=== PATIENT | male | born 1970 | race Caucasian/White ===

== ENCOUNTER 2018-09-13 13:32 | Emergency (ER) | payer SELFPAY ==
[2018-09-13] MEDS ORDERED: ACETAMINOPHEN 500 MG TABLET PO ONE (14:08)
[2018-09-13] MEDS ORDERED: ALBUTEROL SULFATE (0.083%) 2.5 MG/3 ML NEB INH ONE (14:09)
[2018-09-13 14:21] LABS: HEMATOCRIT 30.2 % (42.0-52.0); HEMOGLOBIN 10.5 gm/dl (14.0-18.0); MEAN CELL VOLUME 86.8 fl (81-97); MEAN CORPUSCULAR HGB CONC 34.8 g/dl (32-36); MEAN PLATELET VOLUME 9.8 fl (7.4-10.4); PLATELET COUNT 297 K/uL (130-400); RED BLOOD COUNT 3.48 M/uL (4.40-5.70); RED CELL DISTRIBUTION WIDTH 15.1 % (11.5-14.5)
[2018-09-13 14:22] LABS: MEAN CORPUSCULAR HEMOGLOBIN 30.1 pg (27-33)
[2018-09-13 14:37] LABS: BILIRUBIN,TOTAL 0.3 mg/dL (0.2-1.0); TOTAL PROTEIN 7.9 g/dL (6.6-8.7)
[2018-09-13 14:39] LABS: WHITE BLOOD COUNT W/O DIFF 20.4 K/uL (4.2-12.2)
[2018-09-13 14:42] LABS: INFLUENZA A NEGATIVE (NEGATIVE); INFLUENZA B NEGATIVE (NEGATIVE); STREP A SCREEN NEGATIVE (NEGATIVE)
[2018-09-13 14:42] LABS: ALBUMIN 4.2 g/dL (4.0-5.0)
[2018-09-13 14:54] LABS: ALB/GLOB RATIO 1.1 (1.1-1.8)
--- NOTE | 2018-09-13 15:13 | Emergency Department Record ---
History of Present Illness - General Chief complaint: Weakness Stated complaint: WEAK,SLEEPING ALOT,NOT EATING Time Seen by Provider: 09/13/18 13:57 Source: Patient Mode of Arrival: Ambulatory Limitations: No limitations - History of Present Illness Onset/Timin -: Month(s) Location: Generalized Improves with: None Worsens with: None Associated Symptoms: Fever/chills, Loss of appetite, Shortness of breath - [place] Coma Scale Eye Response: (4) Open spontaneously Motor Response: (6) Obeys commands Verbal Response: (5) Oriented [place] Total: 15 - Related Data Home Medications Medication Instructions Recorded Confirmed Last Taken No Home Med [NO HOME MEDS] 09/13/18 09/13/18 Unknown Allergies Allergy/AdvReac Type Severity Reaction Status Date / Time phenobarbital Allergy PT UNSURE Verified 09/13/18 13:51 OF REACTION Travel Screening - Travel/Exposure Within Last 30 Days Have you traveled within the last 30 days?: No Past Medical History - SOCIAL HISTORY Smoking Status: Current every day smoker Alcohol Use: None Drug Use: None - RESPIRATORY Hx Respiratory Disorders: No - CARDIOVASCULAR Hx Cardio Disorders: No - NEURO Hx Neuro Disorders: No - GI Hx GI Disorders: No - Hx Genitourinary Disorders: Yes Comment:: straight caths self - ENDOCRINE Hx Endocrine Disorders: No - MUSCULOSKELETAL Hx Musculoskeletal Disorders: No - PSYCH Hx Psych Problems: No - HEMATOLOGY/ONCOLOGY Hx Hematology/Oncology Disorders: No Family Medical History Any Significant Family History?: No Course Vital Signs 09/13/18 09/13/18 13:52 14:20 Temperature 97.6 F Pulse Rate 90 90 Respiratory 22 22 Rate Blood Pressure 166/114 Pulse Ox 100 100 - Reevaluation(s) Reevaluation #1: 09/13/18 15:53 case d/w non destructive evaluation technician, hospitalist, and roustabout supervisor Reevaluation #2: 09/13/18 15:[address] cancelled till he gets to [facility] Medical Decision Making - Lab Data Result diagrams: 09/13/18 14:15 09/13/18 14:15 Lab Results 09/13/18 09/13/18 09/13/18 Range/Units 14:15 14:15 14:25 WBC 20.4 H* (4.2-12.2) K/uL RBC 3.48 L (4.40-5.70) M/uL Hgb 10.5 L (14.0-18.0) gm/dl Hct 30.2 L (42.0-52.0) % MCV 86.8 (81-97) fl MCH 30.1 (27-33) pg MCHC 34.8 (32-36) g/dl RDW 15.1 H (11.5-14.5) % Plt Count 297 (130-400) K/uL MPV 9.8 (7.4-10.4) fl Neutrophils % 80.0 (47-80) % Band Neutrophils % 1.0 (0-5) % Eosinophils % Not Reportable Basophils % Not Reportable Lymphocytes 8.0 L (16-45) % Monocytes 7.0 (0-9) % Basophils 1.0 (0-6) % Metamyelocytes 1.0 % Eosinophil Count 2.0 (0-6) % Sodium 130 L (136-145) mmol/L Potassium 4.2 (3.4-4.5) mmol/L Chloride 103 (98-107) mmol/L Carbon Dioxide 4.0 L (22-29) mmol/L Anion Gap 23.0 H (7-16) BUN 156 H (6-20) mg/dL Creatinine 16.0 H (0.7-1.2) mg/dL Estimated GFR 3 mL/min Random Glucose 109 (74-109) mg/dL Calcium 6.5 L (8.6-10.0) mg/dL Total Bilirubin 0.30 (0.2-1.0) mg/dL AST 22 (10.0-50.0) U/L ALT 21 (<41) U/L Alkaline Phosphatase 125 (40-129) U/L Total Protein 7.9 (6.6-8.7) g/dL Albumin 4.2 (4.0-5.0) g/dL Globulin 3.7 (1.4-4.8) gm/dL Albumin/Globulin Ratio 1.1 (1.1-1.8) Influenza Type A Ag Negative (NEGATIVE) Influenza Type B Ag Negative (NEGATIVE) Group A Strep Screen Negative (NEGATIVE) Disposition Disposition: Transfer Clinical Impression: Acute kidney failure Qualifiers: Acute renal failure type: unspecified Qualified Code(s): N17.9 - Acute kidney failure, unspecified Disposition: [facility] Transfer Transfer To: [facility] Reason For Transfer: acute renal failure Accepting Physician: tianna arango and justine Time Discussed w/Accepting Physician: 15:52 Quality - Quality Measures Quality Measures: N/A - Blood Pressure Screening Does Patient Have Any of the Following: No Blood Pressure Classification: Hypertensive Reading Systolic Measurement: 166 Diastolic Measurement: 114 Screening for High Blood Pressure: < First Hypertensive BP, F/U Documented > [ G8950] First Hypertensive Follow-up Interventions: Follow-up with rescreen GT 1 day and LT 4 weeks.
[2018-09-13 15:34] LABS: ARTERIAL BLD GAS O2 SATURATION 96.8 % (95-98); ARTERIAL BLOOD GAS BASE EXCESS -28.1 mmol/L (-2 - 3); ARTERIAL BLOOD GAS HCO3 2.6 mmol/L (18-23); METHEMOGLOBIN 0.5 % (0.0-1.5); O2 HEMOGLOBIN 95.3 % vol (94-99); TOTAL HEMOGLOBIN 9.9 g/dl (14-18)
[2018-09-13] MEDS ORDERED: RINGERS SOLUTION,LACTATED 1,000 ML IV ONE (15:35)
[2018-09-13] MEDS ORDERED: CEFEPIME HCL IVPB ONE (15:37)
[2018-09-13] MEDS ORDERED: SODIUM CHLORIDE 0.9% IVPB ONE (15:37)
[2018-09-13 15:40] LABS: ARTERIAL BLOOD GAS PCO2 11.4 mmHg (35-48); ARTERIAL BLOOD GAS pH 6.98 (7.35-7.45)
[2018-09-13 15:41] LABS: ALLEN TEST PASS
[2018-09-13] MEDS ORDERED: SODIUM BICARBONATE 50MEQ SYRINGE IVP ONE ×2 (15:44→15:49)
--- NOTE | 2018-09-13 16:01 | Emergency Department Record ---
History of Present Illness - General Chief complaint: Weakness Stated complaint: WEAK,SLEEPING ALOT,NOT EATING Time Seen by Provider: 09/13/18 13:57 Source: Patient Mode of Arrival: Ambulatory Limitations: No limitations - History of Present Illness Onset/Timin -: Month(s) Location: Generalized Improves with: None Worsens with: None Associated Symptoms: Fever/chills, Loss of appetite, Shortness of breath - [place] Coma Scale Eye Response: (4) Open spontaneously Motor Response: (6) Obeys commands Verbal Response: (5) Oriented Jeanne Total: 15 - Related Data Home Medications Medication Instructions Recorded Confirmed Last Taken No Home Med [NO HOME MEDS] 09/13/18 09/13/18 Unknown Allergies Allergy/AdvReac Type Severity Reaction Status Date / Time phenobarbital Allergy PT UNSURE Verified 09/13/18 13:51 OF REACTION Travel Screening - Travel/Exposure Within Last 30 Days Have you traveled within the last 30 days?: No Past Medical History - SOCIAL HISTORY Smoking Status: Current every day smoker Alcohol Use: None Drug Use: None - RESPIRATORY Hx Respiratory Disorders: No - CARDIOVASCULAR Hx Cardio Disorders: No - NEURO Hx Neuro Disorders: No - GI Hx GI Disorders: No - Hx Genitourinary Disorders: Yes Comment:: straight caths self - ENDOCRINE Hx Endocrine Disorders: No - MUSCULOSKELETAL Hx Musculoskeletal Disorders: No - PSYCH Hx Psych Problems: No - HEMATOLOGY/ONCOLOGY Hx Hematology/Oncology Disorders: No Family Medical History Any Significant Family History?: No Physical Exam - General Limitations: No limitations Course Vital Signs 09/13/18 09/13/18 09/13/18 13:52 14:20 15:54 Temperature 97.6 F Pulse Rate 90 90 Pulse Rate [ 92 H Pulse Ox Probe] Respiratory 22 22 20 Rate Blood Pressure 166/114 Blood Pressure 185/102 [Left Arm] Pulse Ox 100 100 99 Medical Decision Making - Lab Data Result diagrams: 09/13/18 14:15 09/13/18 14:15 Lab Results 09/13/18 09/13/18 09/13/18 Range/Units 14:15 14:15 14:25 WBC 20.4 H* (4.2-12.2) K/uL RBC 3.48 L (4.40-5.70) M/uL Hgb 10.5 L (14.0-18.0) gm/dl Hct 30.2 L (42.0-52.0) % MCV 86.8 (81-97) fl MCH 30.1 (27-33) pg MCHC 34.8 (32-36) g/dl RDW 15.1 H (11.5-14.5) % Plt Count 297 (130-400) K/uL MPV 9.8 (7.4-10.4) fl Neutrophils % 80.0 (47-80) % Band Neutrophils % 1.0 (0-5) % Eosinophils % Not Reportable Basophils % Not Reportable Lymphocytes 8.0 L (16-45) % Monocytes 7.0 (0-9) % Basophils 1.0 (0-6) % Metamyelocytes 1.0 % Eosinophil Count 2.0 (0-6) % Puncture Site pCO2 (35-48) mmHg pO2 (83-108) mmHg HCO3 (18-23) mmol/L Oxyhemoglobin (94-99) % vol ABG pH (7.35-7.45) ABG O2 Saturation (95-98) % ABG Base Excess (-2 - 3) mmol/L Greg Test Carboxyhemoglobin (0-1.5) % Methemoglobin (0.0-1.5) % Total Hemoglobin (14-18) g/dl Actual Respiration Rate (10-18) /MIN FiO2 % Sodium 130 L (136-145) mmol/L Potassium 4.2 (3.4-4.5) mmol/L Chloride 103 (98-107) mmol/L Carbon Dioxide 4.0 L (22-29) mmol/L Anion Gap 23.0 H (7-16) BUN 156 H (6-20) mg/dL Creatinine 16.0 H (0.7-1.2) mg/dL Estimated GFR 3 mL/min Random Glucose 109 (74-109) mg/dL Calcium 6.5 L (8.6-10.0) mg/dL Total Bilirubin 0.30 (0.2-1.0) mg/dL AST 22 (10.0-50.0) U/L ALT 21 (<41) U/L Alkaline Phosphatase 125 (40-129) U/L Total Protein 7.9 (6.6-8.7) g/dL Albumin 4.2 (4.0-5.0) g/dL Globulin 3.7 (1.4-4.8) gm/dL Albumin/Globulin Ratio 1.1 (1.1-1.8) Influenza Type A Ag Negative (NEGATIVE) Influenza Type B Ag Negative (NEGATIVE) Group A Strep Screen Negative (NEGATIVE) 09/13/18 Range/Units 15:10 WBC (4.2-12.2) K/uL RBC (4.40-5.70) M/uL Hgb (14.0-18.0) gm/dl Hct (42.0-52.0) % MCV (81-97) fl MCH (27-33) pg MCHC (32-36) g/dl RDW (11.5-14.5) % Plt Count (130-400) K/uL MPV (7.4-10.4) fl Neutrophils % (47-80) % Band Neutrophils % (0-5) % Eosinophils % Basophils % Lymphocytes (16-45) % Monocytes (0-9) % Basophils (0-6) % Metamyelocytes % Eosinophil Count (0-6) % Puncture Site Left wrist pCO2 11.4 L* (35-48) mmHg pO2 128.0 H (83-108) mmHg HCO3 2.6 L (18-23) mmol/L Oxyhemoglobin 95.3 (94-99) % vol ABG pH 6.98 L* (7.35-7.45) ABG O2 Saturation 96.8 (95-98) % ABG Base Excess -28.1 L (-2 - 3) mmol/L Greg Test Pass Carboxyhemoglobin 1.0 (0-1.5) % Methemoglobin 0.5 (0.0-1.5) % Total Hemoglobin 9.9 L (14-18) g/dl Actual Respiration Rate 24.0 H (10-18) /MIN FiO2 % Sodium (136-145) mmol/L Potassium (3.4-4.5) mmol/L Chloride (98-107) mmol/L Carbon Dioxide (22-29) mmol/L Anion Gap (7-16) BUN (6-20) mg/dL Creatinine (0.7-1.2) mg/dL Estimated GFR mL/min Random Glucose (74-109) mg/dL Calcium (8.6-10.0) mg/dL Total Bilirubin (0.2-1.0) mg/dL AST (10.0-50.0) U/L ALT (<41) U/L Alkaline Phosphatase (40-129) U/L Total Protein (6.6-8.7) g/dL Albumin (4.0-5.0) g/dL Globulin (1.4-4.8) gm/dL Albumin/Globulin Ratio (1.1-1.8) Influenza Type A Ag (NEGATIVE) Influenza Type B Ag (NEGATIVE) Group A Strep Screen (NEGATIVE) Critical Care Time Critical Care Time: Yes Total Critical Care Time: 75 Disposition Clinical Impression: Acute kidney failure Qualifiers: Acute renal failure type: unspecified Qualified Code(s): N17.9 - Acute kidney failure, unspecified Disposition: [facility] Transfer Quality - Quality Measures Quality Measures: N/A - Blood Pressure Screening Does Patient Have Any of the Following: No Blood Pressure Classification: Hypertensive Reading Systolic Measurement: 166 Diastolic Measurement: 114 Screening for High Blood Pressure: < First Hypertensive BP, F/U Documented > [ G8950] First Hypertensive Follow-up Interventions: Follow-up with rescreen GT 1 day and LT 4 weeks.
[2018-09-13 16:21] LABS: URINE APPEARANCE SL CLOUDY; URINE BILIRUBIN NEGATIVE (NEGATIVE); URINE BLOOD LARGE (NEGATIVE); URINE COLOR YELLOW; URINE GLUCOSE (UA) NEGATIVE (NEGATIVE); URINE KETONE NEGATIVE (NEGATIVE); URINE LEUKOCYTE ESTERASE LARGE (NEGATIVE); URINE NITRITE POSITIVE (NEGATIVE); URINE UROBILINOGEN 0.2 E.U./dL (0.20 - 1.00)
[2018-09-13 16:28] LABS: URINE BACTERIA 4+; URINE RBC 36 - 50 (NONE SEEN); URINE SQUAMOUS EPITHELIAL CELL 0 - 2 /hpf
--- NOTE | 2018-09-15 06:12 | RADIOLOGY REPORT ---
EXAM: CHEST, TWO VIEWS HISTORY: PATIENT HAS COUGH. TECHNIQUE: Two views of the chest are provided without comparison examinations. FINDINGS: The cardiomediastinal silhouette is within normal limits for size and contour. The oneil appear unremarkable. There is no radiographic evidence of a focal infiltrate or pleural effusion. No pneumothorax is noted. IMPRESSION: NO RADIOGRAPHIC EVIDENCE OF AN ACUTE INTRATHORACIC PROCESS. JOB NUMBER: [id number] [facility]
--- NOTE | 2018-09-15 18:27 | Emergency Department Record ---
History of Present Illness - General Chief complaint: Weakness Stated complaint: WEAK,SLEEPING ALOT,NOT EATING Time Seen by Provider: 09/13/18 13:57 Source: Patient Mode of Arrival: Ambulatory Limitations: No limitations - History of Present Illness Initial comments: pt c/o weakness, ivelisse, nausea, decreased appetite, muscle aches , sleeping a lot. pt has not been to a dr in years, pts so states he cant have motrin because someone a long time ago told him his kidneys werent working perfectly. pt has hx of alcoholism but hasnt drank in a long time. he had to have bladder reconstruction because his bladder "shrunk". he self caths. states pt has been breathing heavily for 3 days MD Complaint: Generalized weakness, Lack of energy Onset/Timin -: Month(s) Location: Generalized Severity: Moderate Consistency: Getting worse Improves with: None Worsens with: None Associated Symptoms: Fever/chills, Loss of appetite, Shortness of breath - [place] Coma Scale Eye Response: (4) Open spontaneously Motor Response: (6) Obeys commands Verbal Response: (5) Oriented [place] Total: 15 - Symptoms of Stroke Symptoms of stroke: Muscle Weakness - Related Data Home Medications Medication Instructions Recorded Confirmed Last Taken No Home Med [NO HOME MEDS] 09/13/18 09/13/18 Unknown Allergies Allergy/AdvReac Type Severity Reaction Status Date / Time phenobarbital Allergy PT UNSURE Verified 09/13/18 13:51 OF REACTION Travel Screening - Travel/Exposure Within Last 30 Days Have you traveled within the last 30 days?: No Review of Systems Reviewed: No additional complaints except as noted below Constitutional: Reports: As per HPI, Weakness. Denies: Chills, Fever, Malaise, Night sweats, Weight change Eyes: Reports: As per HPI. Denies: Eye discharge, Eye pain, Photophobia, Vision change ENT: Reports: As per HPI. Denies: Congestion, Dental pain, Ear pain, Epistaxis , Hearing loss, Throat pain Respiratory: Reports: As per HPI, Cough, Dyspnea. Denies: Hemoptysis, Stridor, Wheezes Cardiovascular: Reports: As per HPI. Denies: Arrhythmia, Chest pain, Dyspnea on exertion, Edema, Murmurs, Orthopnea, Palpitations, Paroxysmal nocturnal dyspnea, Rheumatic Fever, Syncope Endocrine: Reports: As per HPI, Fatigue. Denies: Heat or cold intolerance, Polydipsia, Polyuria Gastrointestinal: Reports: As per HPI. Denies: Abdominal pain, Constipation, Diarrhea, Hematemesis, Hematochezia, Melena, Nausea, Vomiting Genitourinary: Reports: As per HPI. Denies: Discharge, Dysuria, Frequency, Hematuria, Incontinence, Retention, Testicular pain, Testicular mass, Urgency Musculoskeletal: Reports: As per HPI. Denies: Arthralgia, Back pain, Gout, Joint swelling, Myalgia, Neck pain Skin: Reports: As per HPI. Denies: Bruising, Change in color, Change in hair/ nails, Lesions, Pruritus, Rash Neurological: Reports: As per HPI. Denies: Abnormal gait, Confusion, Headache, Numbness, Paresthesias, Seizure, Tingling, Tremors, Vertigo, Weakness Psychiatric: Reports: As per HPI. Denies: Anxiety, Auditory hallucinations, Depression, Homicidal thoughts, Suicidal thoughts, Visual hallucinations Hematological/Lymphatic: Reports: As per HPI. Denies: Anemia, Blood Clots, Easy bleeding, Easy bruising, Swollen glands Past Medical History - SOCIAL HISTORY Smoking Status: Current every day smoker Alcohol Use: None Drug Use: None - RESPIRATORY Hx Respiratory Disorders: No - CARDIOVASCULAR Hx Cardio Disorders: No - NEURO Hx Neuro Disorders: No - GI Hx GI Disorders: No - Hx Genitourinary Disorders: Yes Comment:: straight caths self - ENDOCRINE Hx Endocrine Disorders: No - MUSCULOSKELETAL Hx Musculoskeletal Disorders: No - PSYCH Hx Psych Problems: No - HEMATOLOGY/ONCOLOGY Hx Hematology/Oncology Disorders: No Family Medical History Any Significant Family History?: No Physical Exam - General General Appearance: Alert, Oriented x3, Cooperative, Moderate distress, Other ( [place] breathing) Limitations: No limitations - Head Head exam: Normal inspection - Eye Eye exam: Normal appearance, PERRL, EOMI Pupils: Normal accommodation - ENT ENT exam: Normal exam, Mucous membranes dry, Normal external ear exam, Normal orophraynx Ear exam: Normal external inspection. negative: External canal tenderness Nasal Exam: Normal inspection. negative: Discharge, Sinus tenderness Mouth exam: Normal external inspection, Tongue normal Teeth exam: Normal inspection. negative: Dental caries Throat exam: Normal inspection. negative: Tonsillar erythema, Tonsillar exudate - Neck Neck exam: Normal inspection, Full ROM. negative: Tenderness - Respiratory Respiratory exam: Respiratory distress, Other ([place] breathing) - Cardiovascular Cardiovascular Exam: Regular rate, Normal rhythm, Normal heart sounds - GI/Abdominal GI/Abdominal exam: Soft, Normal bowel sounds. negative: Tenderness - Rectal Rectal exam: Deferred - exam: Deferred - Extremities Extremities exam: Normal inspection, Full ROM, Normal capillary refill. negative: Tenderness - Back Back exam: Reports: Normal inspection, Full ROM. Denies: Muscle spasm, Rash noted, Tenderness - Neurological Neurological exam: Alert, CN II-XII intact, Normal gait, Oriented X3 - Psychiatric Psychiatric exam: Normal affect, Normal mood - Skin Skin exam: Dry, Intact, Pallor, Warm Course Vital Signs 09/13/18 09/13/18 09/13/18 13:52 14:20 15:54 Temperature 97.6 F Pulse Rate 90 90 Pulse Rate [ 92 H Pulse Ox Probe] Respiratory 22 22 20 Rate Blood Pressure 166/114 Blood Pressure 185/102 [Left Arm] Pulse Ox 100 100 99 Medical Decision Making - Lab Data Result diagrams: 09/13/18 14:15 09/13/18 14:15 Lab Results 09/13/18 09/13/18 09/13/18 Range/Units 14:15 14:15 14:25 WBC 20.4 H* (4.2-12.2) K/uL RBC 3.48 L (4.40-5.70) M/uL Hgb 10.5 L (14.0-18.0) gm/dl Hct 30.2 L (42.0-52.0) % MCV 86.8 (81-97) fl MCH 30.1 (27-33) pg MCHC 34.8 (32-36) g/dl RDW 15.1 H (11.5-14.5) % Plt Count 297 (130-400) K/uL MPV 9.8 (7.4-10.4) fl Neutrophils % 80.0 (47-80) % Band Neutrophils % 1.0 (0-5) % Eosinophils % Not Reportable Basophils % Not Reportable Lymphocytes 8.0 L (16-45) % Monocytes 7.0 (0-9) % Basophils 1.0 (0-6) % Metamyelocytes 1.0 % Eosinophil Count 2.0 (0-6) % Puncture Site pCO2 (35-48) mmHg pO2 (83-108) mmHg HCO3 (18-23) mmol/L Oxyhemoglobin (94-99) % vol ABG pH (7.35-7.45) ABG O2 Saturation (95-98) % ABG Base Excess (-2 - 3) mmol/L Greg Test Carboxyhemoglobin (0-1.5) % Methemoglobin (0.0-1.5) % Total Hemoglobin (14-18) g/dl Actual Respiration Rate (10-18) /MIN FiO2 % Sodium 130 L (136-145) mmol/L Potassium 4.2 (3.4-4.5) mmol/L Chloride 103 (98-107) mmol/L Carbon Dioxide 4.0 L (22-29) mmol/L Anion Gap 23.0 H (7-16) BUN 156 H (6-20) mg/dL Creatinine 16.0 H (0.7-1.2) mg/dL Estimated GFR 3 mL/min Random Glucose 109 (74-109) mg/dL Lactic Acid (0.5-2.2) mmol/L Calcium 6.5 L (8.6-10.0) mg/dL Total Bilirubin 0.30 (0.2-1.0) mg/dL AST 22 (10.0-50.0) U/L ALT 21 (<41) U/L Alkaline Phosphatase 125 (40-129) U/L Total Protein 7.9 (6.6-8.7) g/dL Albumin 4.2 (4.0-5.0) g/dL Globulin 3.7 (1.4-4.8) gm/dL Albumin/Globulin Ratio 1.1 (1.1-1.8) Urine Color Urine Appearance Urine pH (5.0-8.0) Ur Specific [place] (1.002-1.030) Urine Protein (NEGATIVE) Urine Glucose (UA) (NEGATIVE) Urine Ketones (NEGATIVE) Urine Blood (NEGATIVE) Urine Nitrite (NEGATIVE) Urine Bilirubin (NEGATIVE) Urine Urobilinogen (0.20 - 1.00) E.U./dL Ur Leukocyte Esterase (NEGATIVE) Urine RBC (NONE SEEN) Urine WBC (0-2/hpf) U Non-Squamous Epi Cells /hpf Urine Bacteria Influenza Type A Ag Negative (NEGATIVE) Influenza Type B Ag Negative (NEGATIVE) Group A Strep Screen Negative (NEGATIVE) 09/13/18 09/13/18 09/13/18 Range/Units 15:10 15:45 16:15 WBC (4.2-12.2) K/uL RBC (4.40-5.70) M/uL Hgb (14.0-18.0) gm/dl Hct (42.0-52.0) % MCV (81-97) fl MCH (27-33) pg MCHC (32-36) g/dl RDW (11.5-14.5) % Plt Count (130-400) K/uL MPV (7.4-10.4) fl Neutrophils % (47-80) % Band Neutrophils % (0-5) % Eosinophils % Basophils % Lymphocytes (16-45) % Monocytes (0-9) % Basophils (0-6) % Metamyelocytes % Eosinophil Count (0-6) % Puncture Site Left wrist pCO2 11.4 L* (35-48) mmHg pO2 128.0 H (83-108) mmHg HCO3 2.6 L (18-23) mmol/L Oxyhemoglobin 95.3 (94-99) % vol ABG pH 6.98 L* (7.35-7.45) ABG O2 Saturation 96.8 (95-98) % ABG Base Excess -28.1 L (-2 - 3) mmol/L Greg Test Pass Carboxyhemoglobin 1.0 (0-1.5) % Methemoglobin 0.5 (0.0-1.5) % Total Hemoglobin 9.9 L (14-18) g/dl Actual Respiration Rate 24.0 H (10-18) /MIN FiO2 % Sodium (136-145) mmol/L Potassium (3.4-4.5) mmol/L Chloride (98-107) mmol/L Carbon Dioxide (22-29) mmol/L Anion Gap (7-16) BUN (6-20) mg/dL Creatinine (0.7-1.2) mg/dL Estimated GFR mL/min Random Glucose (74-109) mg/dL Lactic Acid 0.9 (0.5-2.2) mmol/L Calcium (8.6-10.0) mg/dL Total Bilirubin (0.2-1.0) mg/dL AST (10.0-50.0) U/L ALT (<41) U/L Alkaline Phosphatase (40-129) U/L Total Protein (6.6-8.7) g/dL Albumin (4.0-5.0) g/dL Globulin (1.4-4.8) gm/dL Albumin/Globulin Ratio (1.1-1.8) Urine Color Yellow Urine Appearance Sl cloudy Urine pH 7.0 (5.0-8.0) Ur Specific [place] 1.015 (1.002-1.030) Urine Protein 100 mg/dl H (NEGATIVE) Urine Glucose (UA) Negative (NEGATIVE) Urine Ketones Negative (NEGATIVE) Urine Blood Large H (NEGATIVE) Urine Nitrite Positive H (NEGATIVE) Urine Bilirubin Negative (NEGATIVE) Urine Urobilinogen 0.2 (0.20 - 1.00) E.U./dL Ur Leukocyte Esterase Large H (NEGATIVE) Urine RBC 36 - 50 (NONE SEEN) Urine WBC Too numerous to cnt (0-2/hpf) U Non-Squamous Epi Cells 0 - 2 /hpf Urine Bacteria 4+ Influenza Type A Ag (NEGATIVE) Influenza Type B Ag (NEGATIVE) Group A Strep Screen (NEGATIVE) Critical Care Time Critical Care Time: Yes Total Critical Care Time: 75 Disposition Disposition: Transfer Clinical Impression: Acute kidney failure Qualifiers: Acute renal failure type: unspecified Qualified Code(s): N17.9 - Acute kidney failure, unspecified Disposition: Acute Care [facility] Reason For Transfer: renal failure, needs dialysis Accepting Physician: supplier diversity director Time Discussed w/Accepting Physician: 17:00 Condition: (5) Critical Forms: Patient Portal Access Quality - Quality Measures Quality Measures: N/A - Blood Pressure Screening Does Patient Have Any of the Following: No Blood Pressure Classification: Hypertensive Reading Systolic Measurement: 166 Diastolic Measurement: 114 Screening for High Blood Pressure: < First Hypertensive BP, F/U Documented > [ G8950] First Hypertensive Follow-up Interventions: Follow-up with rescreen GT 1 day and LT 4 weeks.
== END 2018-09-13 16:30 | disposition short-term general hospital (02) ==
LOC: ER 13:32
DX: N17.9 Acute kidney failure, unspecified (principal); R06.02 Shortness of breath; R53.1 Weakness; R05 Cough; F17.210 Nicotine dependence, cigarettes, uncomplicated
CPT/HCPCS: 36600; 71046; 80053; 81001; 82375; 82803; 83605; 85027; 87400; 87880; 94640; 96365; 96375; 99285; J7120; J7613

== ENCOUNTER 2018-10-03 18:55 | Emergency (ER) | payer MEDICAID ==
--- NOTE | 2018-10-03 19:14 | Emergency Department Record ---
History of Present Illness - General Chief complaint: Male Urogenital Problem Stated complaint: UTI Time Seen by Provider: 10/03/18 18:57 Source: Patient Mode of Arrival: Ambulatory Limitations: No limitations - History of Present Illness Initial comments: 48 yo male presents to ED for evaluation of suprapubic pain for the past 2-3 days, reports "I think I may have a UTI". Patient's SO reports that she has been trying to get new disposable catheters for the patient, patient has been rinsing/rewashing his catheters for 2 weeks. Patient denies fevers, chills, or recent illness. Patient reports history of self cathing due to bladder dysfunction, reports a history of ESRD on dialysis earlier today. Patient denies nausea/vomiting symptoms, denies dysuria symptoms. MD Complaint: Dysuria Onset/Timin Location: Abdomen Radiation: None Severity: Moderate Quality: Aching Consistency: Constant Improves with: None Worsens with: None Other Reports: Denies other symptoms - Related Data Home Medications Medication Instructions Recorded Confirmed Last Taken Amlodipine Besylate [Norvasc] 5 mg PO DAILY 10/03/18 10/03/18 Unknown Calcitriol 0.25 mcg PO DAILY 10/03/18 10/03/18 Unknown Hydralazine HCl 25 mg PO TID 10/03/18 10/03/18 Unknown Oxybutynin Chloride [Ditropan] 5 mg PO BID 10/03/18 10/03/18 Unknown Previous Rx's Medication Instructions Recorded Levofloxacin [Levaquin] 250 mg PO BID #14 tablet 10/03/18 Allergies Allergy/AdvReac Type Severity Reaction Status Date / Time phenobarbital Allergy PT UNSURE Verified 09/13/18 13:51 OF REACTION Review of Systems Constitutional: Denies: Chills, Fever, Malaise, Night sweats Eyes: Denies: Eye discharge, Eye pain ENT: Denies: Congestion, Ear pain, Epistaxis Respiratory: Denies: Cough, Dyspnea Cardiovascular: Denies: Chest pain, Dyspnea on exertion Endocrine: Denies: Fatigue, Heat or cold intolerance Gastrointestinal: Reports: Abdominal pain. Denies: Nausea, Vomiting Genitourinary: Denies: Incontinence, Retention Musculoskeletal: Denies: Arthralgia, Back pain Skin: Denies: Bruising, Change in color Neurological: Denies: Abnormal gait, Confusion, Headache, Seizure Psychiatric: Denies: Anxiety Hematological/Lymphatic: Denies: Anemia, Blood Clots Past Medical History - SOCIAL HISTORY Smoking Status: Current every day smoker Drug Use: None - RESPIRATORY Hx Respiratory Disorders: No - CARDIOVASCULAR Hx Cardio Disorders: No - NEURO Hx Neuro Disorders: No - GI Hx GI Disorders: No - Hx Genitourinary Disorders: Yes Comment:: straight caths self - ENDOCRINE Hx Endocrine Disorders: No - MUSCULOSKELETAL Hx Musculoskeletal Disorders: No - PSYCH Hx Psych Problems: No - HEMATOLOGY/ONCOLOGY Hx Hematology/Oncology Disorders: No Physical Exam - General General Appearance: Alert, Oriented x3, Cooperative, Mild distress Limitations: No limitations - Head Head exam: Atraumatic, Normocephalic, Normal inspection Head exam detail: negative: Abrasion, Contusion, Vásquez's sign, General tenderness, Hematoma, Laceration - Eye Eye exam: Normal appearance. negative: Conjunctival injection, Periorbital swelling, Periorbital tenderness, Scleral icterus - ENT Ear exam: negative: Auricular hematoma, Auricular trauma Nasal Exam: negative: Active bleeding, Discharge, Dried blood, Foreign body Mouth exam: negative: Drooling, Laceration, Muffled voice, Tongue elevation - Neck Neck exam: Normal inspection. negative: Meningismus, Tenderness - Respiratory Respiratory exam: Normal lung sounds bilaterally, Other (Fistula right upper chest wall). negative: Rales, Respiratory distress, Rhonchi, Stridor - Cardiovascular Cardiovascular Exam: Regular rate, Normal rhythm, Normal heart sounds - GI/Abdominal GI/Abdominal exam: Soft. negative: Rebound, Rigid, Tenderness - Rectal Rectal exam: Deferred - exam: Circumcision, Normal inspection - Extremities Extremities exam: Normal inspection. negative: Pedal edema, Tenderness - Back Back exam: Denies: CVA tenderness (R), CVA tenderness (L) - Neurological Neurological exam: Alert, Normal gait, Oriented X3 - Psychiatric Psychiatric exam: Normal affect, Normal mood - Skin Skin exam: Normal color. negative: Abrasion Type of lesion: negative: abrasion Course Vital Signs 10/03/18 19:03 Temperature 98.6 F Pulse Rate [ 103 H Left] Respiratory 16 Rate Blood Pressure 103/75 [Left Arm] Pulse Ox 96 - Reevaluation(s) Reevaluation #1: 10/03/18 19:53 UA reviewed: 3-6 RBCs 10-15 WBCs 1+ Bacteria Patient was updated on his UA result, offered further evaluation with laboratory studies/CT imaging as his UA is minimally infected. Patient declined stating he would prefer to start Levaquin and see how his symptoms progress. Will administer Levaquin 250 mg, discharge home with Urology follow-up in 2-3 days as directed. Disposition Disposition: Discharge Clinical Impression: Acute cystitis Qualifiers: Hematuria presence: with hematuria Qualified Code(s): N30.01 - Acute cystitis with hematuria Disposition: Home, Self-Care Condition: (2) Stable Instructions: Urinary Tract Infection in Men (ED) Additional Instructions: Return to ED if your symptoms worsen or if you have any concerns. Levaquin as directed. Follow-up with your Urologist in 2-3 days as directed. Prescriptions: Levofloxacin [Levaquin] 250 mg PO BID #14 tablet Forms: Patient Portal Access Time of Disposition: 19:56 Quality - Quality Measures Quality Measures: N/A - Blood Pressure Screening Does Patient Have Any of the Following: No Blood Pressure Classification: Normal BP Reading Systolic Measurement: 103 Diastolic Measurement: 75 Screening for High Blood Pressure: < Normal BP, F/U Not Required > [[id number]]
[2018-10-03 19:39] LABS: URINE APPEARANCE CLEAR; URINE BILIRUBIN NEGATIVE (NEGATIVE); URINE BLOOD TRACE-I (NEGATIVE); URINE COLOR YELLOW; URINE GLUCOSE (UA) NEGATIVE (NEGATIVE); URINE KETONE NEGATIVE (NEGATIVE); URINE LEUKOCYTE ESTERASE SMALL (NEGATIVE); URINE NITRITE NEGATIVE (NEGATIVE); URINE UROBILINOGEN 0.2 E.U./dL (0.20 - 1.00)
[2018-10-03 19:40] LABS: URINE PROTEIN 300 mg/dL (NEGATIVE)
[2018-10-03 19:47] LABS: URINE BACTERIA 1+
[2018-10-03] MEDS ORDERED: LEVOFLOXACIN 500 MG TABLET PO ONE (19:54)
[2018-10-03] MEDS ORDERED: HYDROCODONE/APAP 5/325MG TABLET PO ONE ×2 (19:54→20:08)
== END 2018-10-03 20:12 | disposition home or self-care (01) ==
LOC: ER 18:55
DX: N30.01 Acute cystitis with hematuria (principal); F17.210 Nicotine dependence, cigarettes, uncomplicated
CPT/HCPCS: 81001; 99282; 99283